=== PATIENT | male | born 1995 | race Caucasian/White ===

== ENCOUNTER 2016-12-11 04:43 | Emergency (ER) | payer OTHER ==
[2016-12-11 04:56] VITALS: BP 112/66
[2016-12-11] MEDS ORDERED: LIDOCAINE 1% INJ-PF (10 MG/ML) 30 ML SDV INJ ONE (07:28)
--- NOTE | 2016-12-11 07:34 | ER Document Report ---
ED General - General Chief Complaint: Finger Injury Stated Complaint: FINGER LACERATION Mode of Arrival: Ambulatory Information source: Patient Notes: Patient presents to the emergency department with complaints of laceration to the palmar surface of his 5th digit right hand. Patient reports he cut his finger on the ice machine at work at [employer] yesterday at approximately 1600. He reports that he thought it looked ok, no problems. On the way home from work later that night he noticed the area bleeding and swelling. He reports last tetanus was within the past 4 years. Has full range of motion denies numbness tingling. TRAVEL OUTSIDE OF THE [place] IN LAST 30 DAYS: No - HPI Onset: Yesterday Onset/Duration: Persistent Severity: Mild Pain Level: 1 Associated symptoms: None Exacerbated by: Denies Relieved by: Denies Similar symptoms previously: No Recently seen / treated by doctor: No - Related Data Allergies/Adverse Reactions: neomycin [Neomycin] Allergy (Verified 12/11/16 04:56) Past Medical History - General Information source: Patient - Social History Smoking Status: Never Smoker Cigarette use (# per day): No Frequency of alcohol use: Social Drug Abuse: None Occupation: [employer] Lives with: Family Family History: None Patient has suicidal ideation: No Patient has homicidal ideation: No Renal/ Medical History: Denies: Hx Peritoneal Dialysis GI Medical History: Reports: Hx Irritable Bowel - as a child Surgical Hx: Negative - Immunizations Immunizations up to date: Yes Hx Diphtheria, Pertussis, Tetanus Vaccination: Yes Review of Systems - Review of Systems Notes: Review HPI for review of systems., All other systems negative Physical Exam - Vital signs Vitals: Temp Pulse Resp BP Pulse Ox 97.7 F 87 14 112/66 96 12/11/16 04:49 12/11/16 04:49 12/11/16 04:49 12/11/16 04:49 12/11/16 04:49 - Notes Notes: PHYSICAL EXAMINATION: GENERAL: Well-appearing and in no acute distress HEAD: Atraumatic, normocephalic. EYES: Pupils equal round , extraocular movements intact, sclera anicteric, conjunctiva are normal. ENT: nares patent, Moist mucous membranes. NECK: Normal range of motion, supple LUNGS: Respiratory rate even/unlabored HEART: Regular rate EXTREMITIES: Normal range of motion, flap shaped laceration to right 5th digit ~ 1 cm flap, no active bleeding, FROM, good cap refill NEUROLOGICAL: Cranial nerves grossly intact. Normal sensory/motor PSYCH: Normal mood, normal affect. SKIN: Warm, Dry, Course - Re-evaluation Re-evalutation: 12/11/16 Patient tolerated procedure well skin flap came off after cleaning well, quick clot applied, bleeding stopped. Pt instructed on care of the avulsion. - Vital Signs Vital signs: Temp Pulse Resp BP Pulse Ox 97.7 F 87 16 112/66 96 12/11/16 06:29 12/11/16 06:29 12/11/16 06:29 12/11/16 06:29 12/11/16 06:29 - Diagnostic Test Radiology reviewed: Image reviewed, Reports reviewed - neg for fx Procedures - Immobilization Right 5th digit Pre-Proc Neuro Vasc Exam: Normal Immobilizer type: Finger splint (Static) Post-Proc Neuro Vasc Exam: Unchanged from pre-exam - Laceration/Wound Repair Right 5th digit Wound length (cm): 1 Wound's Depth, Shape: Superficial, Flap Laceration pre-procedure: Other - hebiclens Anesthetic type: 1% Lidocaine Volume Anesthetic (mLs): 1 Wound explored: No foreign body removed Irrigated w/ Saline (mLs): 200 Wound Repaired With: Other - quick clot Hands front picture: 1 - 1 cm each side flap, hangin on, removed, finger cleaned well, quick clot dressing placed, pressure held, splint placed Discharge - Discharge Clinical Impression: Laceration, Avulsion of skin Condition: Stable Disposition: HOME, SELF-CARE Additional Instructions: *You have been treated for laceration *Take tylenol as indicated for pain *Change top dressing as discussed tomorrow, leave quick clot dressing in place *Wear splint to protect the area, keep the finger clean!! *Monitor the site for signs of infection such as increasing pain, redness, swelling, warmth *Follow up with a primary care provider for recheck or *Return to ED for signs of infection, worsening condition, changes, needs Forms: Return to Work
== END 2016-12-11 08:55 | disposition home or self-care (01) ==
LOC: ER 04:43
DX: S61.216A Laceration without foreign body of right little finger without damage to nail, initial encounter (principal); W45.8XXA Other foreign body or object entering through skin, initial encounter; Y92.511 Restaurant or cafe as the place of occurrence of the external cause; Y99.0 Civilian activity done for income or pay; Z88.1 Allergy status to other antibiotic agents
CPT/HCPCS: 99283